=== PATIENT | male | born 1995 | race Caucasian/White ===

== ENCOUNTER 2021-10-02 19:55 | Emergency (ER) | payer OTHER ==
[~2021-10-02 19:55] MED LIST: BACTRIM DS TAB1 EACH PO; BACTROBAN OINT22 GM EXT; IBUPROFEN600 MG PO; KEFLEX CAP 500500 MG PO
[2021-10-02] MEDS ORDERED: IBUPROFEN600 MG PO (22:23)
== END 2021-10-02 22:30 | disposition home or self-care (01) ==
LOC: ER1 19:55
DX: M25.571 Pain in right ankle and joints of right foot (principal); X50.9XXA Other and unspecified overexertion or strenuous movements or postures, initial encounter
CPT/HCPCS: 73590; 73610; 73630; 99283